=== PATIENT | male | born 1985 | race Caucasian/White ===

== ENCOUNTER 2024-05-13 21:12 | Emergency (ER) | payer BC ==
[~2024-05-13] VITALS: Ht 177.8 cm; Wt 56.9 kg
[2024-05-13 21:17] VITALS: TEMP 98.8
[2024-05-13 21:47] LABS: KETONE, URINE AUTO RFX TRACE mg/dL (NEGATIVE); LEUKOCYTE ESTERASE UR AUTO RFX 2+ (NEGATIVE); MUCUS, URINE RFX MODERATE (NEGATIVE); NITRITE, URINE AUTO RFX NEGATIVE (NEGATIVE); RBC, URINE AUTO RFX TNTC /HPF (0-3); SQUAM EPITHELIAL CELL UR AURFX 2 /HPF (0-6)
[2024-05-13 21:48] LABS: WBC, URINE AUTO RFX 90 /HPF (0-3)
[2024-05-13 22:41] LABS: Trichomonas vaginalis (AMP) NOT DETECTED (NEGATIVE)
[2024-05-13 23:04] LABS: GC DNA AMPLIFICATION NEGATIVE (NEGATIVE)
[2024-05-14 00:21] LABS: BASO # 0.1 10^3/uL (0.0-0.2); BASO % 0.8 % (0.0-1.0); EOS % 0.5 % (0.0-3.0); HEMATOCRIT 44.6 % (42.0-52.0); HEMOGLOBIN 15.4 g/dl (13.5-17.5); LYMPH # 1.9 10^3/uL (1.5-5.0); LYMPH % 24.5 % (24.0-44.0); MEAN CORPUSCULAR HEMOGLOBIN 30.4 pg (27.0-33.0); MEAN CORPUSCULAR HGB CONC 34.5 g/dl (32.0-36.5); MONO # 0.7 10^3/uL (0.0-0.8); MONO % 9.1 % (2.0-8.0); NEUTROPHILS # 5.1 10^3/uL (1.5-8.5); NEUTROPHILS % 64.8 % (36.0-66.0); PLATELET COUNT, AUTOMATED 185 10^3/uL (150-450); RED BLOOD COUNT 5.07 10^6/uL (4.30-6.10); WHITE BLOOD COUNT 7.9 10^3/uL (4.0-10.0)
[2024-05-14] MEDS ORDERED: CIPR500T39 PO (01:09)
[2024-05-14] MEDS ORDERED: PHEN-501 PO (01:11)
[2024-05-14] MEDS: CIPROFLOXACIN 500MG TABLET PO ONE (01:28)
[2024-05-14 01:30] VITALS: BP 103/58; O2SAT 94
== END 2024-05-14 01:35 | disposition home or self-care (01) ==
LOC: M ED 21:12
DX: N39.0 Urinary tract infection, site not specified (principal); R31.9 Hematuria, unspecified; F17.200 Nicotine dependence, unspecified, uncomplicated